=== PATIENT | male | born 1965 | race Caucasian/White ===

== ENCOUNTER 2022-01-27 08:01 | Day surgery (SDC) | payer MEDICAID ==
[~2022-01-27] VITALS: Ht 180.3 cm; Wt 79.3 kg
[2022-01-27] VITALS (14 sets, daily range): BP systolic 100–141; BP diastolic 51–98
[2022-01-27] MEDS ORDERED: METF-438 PO (08:29)
[2022-01-27] MEDS ORDERED: LISI10TA27 PO (08:29)
[2022-01-27] MEDS ORDERED: INSU100I31 SQ (08:29)
[2022-01-27] MEDS ORDERED: ATOR20TA66 PO (08:29)
[2022-01-27] MEDS ORDERED: normal saline 1,000 ML IV SCH (08:30)
[2022-01-27] MEDS ORDERED: nitroGLYCERIN 0.4mg SUBLingual tab SL PRN ×2 (08:30→11:40)
[2022-01-27] MEDS ORDERED: LORazepam 0.5 MG tablet PO PRN (08:30)
[2022-01-27] MEDS ORDERED: ALBUTEROL INH (08:30)
[2022-01-27] MEDS ORDERED: diphenhydrAMINE 25mg capsule PO PRN (08:30)
[2022-01-27] MEDS ORDERED: ASPI-1071 PO (08:30)
[2022-01-27] MEDS ORDERED: iohexol 350MG/ML 100ml bottle IV ONE (08:52)
[2022-01-27] MEDS ORDERED: fentaNYL/PF 50MCG/1 ML 2ML syringe ONE ×2 (08:52→09:53)
[2022-01-27] MEDS ORDERED: midazolam 1 mg/ML 2ml injection ONE ×2 (08:52→09:51)
--- NOTE | 2022-01-27 09:42 | NUR ---
Multiple IV attempts unsuccessful. Pt admits to being ex-IV drug abuser. All attempts able to acces vein with good blood return but unable to advance catheter. Rosemarie MÁRQUEZ (warehouse technician) brought ultrasound and was successfully able to insert 20 G PIV to Left upper arm. IV secured, able to flush with NS but unable to withdraw blood. PIV attached to IV line with pump, currently infusing with no resistance or evidence of infiltration. Lab was called to draw blood for labs.
--- NOTE | 2022-01-27 11:30 | NUR ---
Dr. Bernal CV surgeon at pt bedside discussing results of heart cath and the need for open heart bipass surgery. Pt uncomfortable at this time to discuss or make plans to proceed with having open heart surgery. Pt states he needs to hink about it. Dr. Bernal to return and discuss with pt again at 1300.
[2022-01-27] MEDS ORDERED: normal saline 1000ml 1,000 ML IV SCH (11:35)
[2022-01-27] MEDS ORDERED: ondansetron/PF 4mg/2ml inj IV PRN (11:35)
[2022-01-27] MEDS ORDERED: HYDROcodone/acetaminophen 10/325mg tab PO PRN (11:40)
[2022-01-27] MEDS ORDERED: HYDROcodone/acetaminophen 5mg/325mg tablet PO PRN (11:40)
[2022-01-27] MEDS ORDERED: OXAZEpam 15mg capsule PO PRN (11:40)
[2022-01-27 11:53] LABS: ISTAT HGB ART 13.6 g/dl (14.0-18.0); ISTAT Hct ART 40 %PCV (42-52); ISTAT O2 SATURATION ARTERIAL 97 % (95-98); ISTAT SOURCE BLNK
[2022-01-27 11:53] LABS: ISTAT Hct MIX 38 %PCV (42-52); ISTAT O2 SATURATION MIX VENOUS 67 % (60-80); ISTAT SOURCE BLNK
--- NOTE | 2022-01-27 13:30 | NUR ---
Dr. Bernal phoned to check on pt status. I discussed with Dr. Bernal the pt's wishes to continue to go home and think about it. Orders received from Dr. Bernal. I discussed with Dr. Bernal pt is comfortable with the idea of going home to think about open heart surgery and to see Dr. Bernal in clinic to further discuss his options and answer any questions he might have regarding surgery on Wednesday, February 02, 2022.
--- NOTE | 2022-01-27 14:00 | NUR ---
Pt eating sandwich and drinking juice without problems.
--- NOTE | 2022-01-27 16:30 | NUR ---
Written and Verbal DC instructions given to pt, stressed importance of seeking medical care if he should have return of symptoms of heart attack including but not limited to SOB, CP, feeling faint, stressed importance of following up with Dr. Bernal for consultation. Pt verbalizes understanding.
--- NOTE | 2022-01-27 16:45 | NUR ---
Pt up amb in hallway, gait steady. No C/O CP, SOB, or feeling faint/light headed. Right groin site remains stable, no bleeding, bruising or hematoma noted. Dressing CD&I. Pt returned to room, able to dress self.
--- NOTE | 2022-01-27 17:00 | NUR ---
Dc to home with friend transferred to private car via WC with all belongings.
== END 2022-01-27 17:00 | disposition home or self-care (01) ==
LOC: SSTAY O 08:01
PROVIDERS: ATTEND Internal Medicine Cardiovascular Disease
DX: R94.39 Abnormal result of other cardiovascular function study (principal); I25.10 Atherosclerotic heart disease of native coronary artery without angina pectoris; Z79.899 Other long term (current) drug therapy; I27.20 Pulmonary hypertension, unspecified; I10 Essential (primary) hypertension; I73.9 Peripheral vascular disease, unspecified; E78.5 Hyperlipidemia, unspecified; E11.51 Type 2 diabetes mellitus with diabetic peripheral angiopathy without gangrene; J44.9 Chronic obstructive pulmonary disease, unspecified; Z87.891 Personal history of nicotine dependence; Z98.890 Other specified postprocedural states
CPT/HCPCS: 36415; 82803; 83880; 84484; 85014; 93005; 93461; 93880; 99152; 99153; C1751; C1760; C1769; J1644; J2250; J3010; J7030; Q0163; Q9967; A4620; A6258

== ENCOUNTER 2022-02-04 12:30 | Outpatient (CLI) | payer MEDICAID ==
[~2022-02-04] VITALS: Ht 180.3 cm; Wt 77.1 kg
[~2022-02-04 12:30] MED LIST: ALBUTEROL INH; ASPI-1071 PO; ATOR20TA66 PO; INSU100I31 SQ; LISI10TA27 PO; METF-438 PO
[2022-02-04 14:13] LABS: BASOPHILS # (AUTO) 0.1 X10'3 (0-0.2); BASOPHILS % (AUTO) 1.1 % (0-1); EOSINOPHILS # (AUTO) 0.3 X10'3 (0-0.9); EOSINOPHILS % (AUTO) 2.6 % (0-6); LYMPHOCYTES # (AUTO) 2.2 X10'3 (1.1-4.8); LYMPHOCYTES % (AUTO) 18.8 % (21-51); MEAN CORPUSCULAR HEMOGLOBIN 29.4 PG (27.0-31.0); MEAN CORPUSCULAR HGB CONC 33.9 g/dL (33.0-36.5); MEAN CORPUSCULAR VOLUME 86.9 FL (78-98); MEAN PLATELET VOLUME 9.7 FL (7.4-10.4); MONOCYTES # (AUTO) 1.3 X10'3 (0-0.9); MONOCYTES % (AUTO) 10.9 % (2-12); NEUTROPHILS # (AUTO) 7.9 X10'3 (1.8-7.7); NEUTROPHILS % (AUTO) 66.6 % (42-75); PRE OP HEMATOCRIT 45.1 % (42.0-52.0); PRE OP HEMOGLOBIN 15.3 g/dL (14.0-17.9); PRE OP PLATELET COUNT 271 X10'3 (140-440); RED BLOOD COUNT 5.19 X10'6 (4.70-6.10); RED CELL DISTRIBUTION WIDTH 13.8 % (11.5-14.5)
[2022-02-04 14:16] LABS: CLARITY,URINE CLEAR (Clear); COLOR,URINE YELLOW (Yellow); GLUCOSE, URINE 500 mg/dl (Neg); KETONES,URINE NEGATIVE (Neg); LEUKOCYTE ESTERASE ,URINE NEGATIVE (Neg); NITRITES, URINE NEGATIVE (Neg); OCCULT BLOOD,URINE NEGATIVE (Neg); PH,URINE 5.5 (4.8-8.0); PROTEIN,URINE TRACE mg/dl (Neg); UROBILINOGEN,URINE 0.2 E.U/dL (0.2-1.0)
[2022-02-04 14:26] LABS: PRE OP PROTIME 10.2 SECONDS (9.0-12.0)
[2022-02-04 14:28] LABS: HEMOGLOBIN A1C 8.2 % (4.5-6.2); UA COLLECTION TYPE CLN CATCH MIDSTREAM
[2022-02-04 14:29] LABS: BACTERIA,URINE NONE SEEN /HPF (Neg); MUCUS STRANDS MODERATE /LPF (Neg); RBC,URINE NONE SEEN /HPF (0-2); SQUAMOUS EPITHELIAL CELL,UR FEW /LPF (FEW); WBC,URINE 0-4 /HPF (0-4)
[2022-02-04 14:30] LABS: ALBUMIN 3.7 G/DL (3.4-5.0); ALBUMIN/GLOBULIN RATIO 0.9 (1.1-1.5); ALKALINE PHOSPHATASE 90 IU/L (46-116); BLOOD UREA NITROGEN 15 MG/DL (7-18); BUN/CREATININE RATIO 9.6 (5.4-32.0); CALCIUM 9.1 MG/DL (8.5-10.1); CHLORIDE 100 MMOL/L (99-107); CREATININE 1.57 MG/DL (0.60-1.10); PRE OP ALT 31 U/L (30-65); PRE OP ANION GAP 9 (8-16); PRE OP AST 18 U/L (10-37); PRE OP BILIRUB, TOTAL 0.6 MG/DL (0.0-1.0); PRE OP GLUCOSE 151 MG/DL (70-104); PRE OP POTASSIUM 4.1 MMOL/L (3.4-5.1); PRE OP SODIUM 138 MMOL/L (135-145); TOTAL CARBON DIOXIDE 28.8 MMOL/L (24-32); TOTAL PROTEIN 7.6 G/DL (6.4-8.2); eGFR 46 ML/MIN
[2022-02-08] MEDS ORDERED: ringers solution, lacted 1,000 ML IV SCH (05:00)
[2022-02-08] MEDS ORDERED: gabapentin 300mg capsule PO ONE (05:30)
[2022-02-08] MEDS ORDERED: LORazepam 1 MG tablet PO ONE (05:30)
[2022-02-08] MEDS ORDERED: ceFAZolin inj. 2,000 MG in dextrose 5%-water 100 ML IV ONE (05:30)
[2022-02-08] MEDS ORDERED: mupirocin 2% nasal ointment 1gm UD NS ONE (05:30)
[2022-02-08] MEDS ORDERED: albuterol 2.5 MG/3 ML nebule NEB ONE (05:30)
[2022-02-08] MEDS ORDERED: famotidine 20mg tablet PO ONE (05:30)
[2022-02-08 06:11] LABS: ABG BASE EXCESS -1.1 mmol/L (-2.0-2.0); ABG HCO3 22.7 mmol/L (22.0-26.0); ABG OXYGEN SATURATION 96.4 % (94-97); ABG PCO2 (T) 35.7 mmHg (35.0-48.0); ABG PO2 (T) 85.3 mmHg (75.0-100.0); ALLEN'S TEST POSITIVE; FCOHb 0.3 % (0.0-3.9); FO2Hb 96.1 % (94-97); TOTAL HEMOGLOBIN 15.1 G/dl (14.0-18.0)
[2022-02-10] MEDS ORDERED: ringers solution, lacted 1,000 ML IV SCH (05:00)
[2022-02-10] MEDS ORDERED: ceFAZolin inj. 2,000 MG in dextrose 5%-water 100 ML IV ONE (05:30)
[2022-02-10] MEDS ORDERED: LORazepam 1 MG tablet PO ONE (05:30)
[2022-02-10] MEDS ORDERED: gabapentin 300mg capsule PO ONE (05:30)
[2022-02-10] MEDS ORDERED: phenylephrine inj 50 MG in normal saline 250ml IV solN IV SCH (05:30)
[2022-02-10] MEDS ORDERED: albuterol 2.5 MG/3 ML nebule NEB ONE (05:30)
[2022-02-10] MEDS ORDERED: Insulin Reg/NS 100units/100mL 100 ML IV SCH (05:30)
[2022-02-10] MEDS ORDERED: famotidine 20mg tablet PO ONE (05:30)
[2022-02-10] MEDS ORDERED: mupirocin 2% nasal ointment 1gm UD NS ONE (05:30)
[2022-02-10] MEDS ORDERED: nitroPRUSSIDE (NIPRIDE) (200MCG/ML) 100ML Drip IV SCH (05:30)
== END 2022-02-04 23:59 | disposition home or self-care (01) ==
LOC: PRE-OP 12:30 → LAB 12:30 → PRE-OP 23:59 → EDSTATUS 02-10 08:30
PROVIDERS: ATTEND Thoracic Surgery (Cardiothoracic Vascular Surgery)
DX: Z01.818 Encounter for other preprocedural examination (principal); R94.31 Abnormal electrocardiogram [ECG] [EKG]
CPT/HCPCS: 36415; 36600; 80053; 81001; 82803; 83036; 85018; 85025; 85610; 85730; 86885; 86900; 86901; 86920; 87081; 93005; 93970; A4615; J0690; J1815; J2370; J3490; J7050; J7060; J7120

== ENCOUNTER 2022-02-22 10:15 | Inpatient (IN) | payer MEDICAID ==
[~2022-02-22] VITALS: Ht 175.3 cm; Wt 92.3 kg
[2022-02-23 13:46] LABS: BASOPHILS # (AUTO) 0.1 X10'3 (0-0.2); BASOPHILS % (AUTO) 0.9 % (0-1); EOSINOPHILS # (AUTO) 0.1 X10'3 (0-0.9); EOSINOPHILS % (AUTO) 1.1 % (0-6); LYMPHOCYTES % (AUTO) 18.9 % (21-51); MEAN CORPUSCULAR HEMOGLOBIN 30.6 PG (27.0-31.0); MEAN CORPUSCULAR HGB CONC 34.5 g/dL (33.0-36.5); MEAN CORPUSCULAR VOLUME 88.8 FL (78-98); MEAN PLATELET VOLUME 10.8 FL (7.4-10.4); MONOCYTES # (AUTO) 0.8 X10'3 (0-0.9); NEUTROPHILS # (AUTO) 7.8 X10'3 (1.8-7.7); NEUTROPHILS % (AUTO) 72.1 % (42-75); PRE OP HEMATOCRIT 43.5 % (42.0-52.0); PRE OP PLATELET COUNT 229 X10'3 (140-440); RED CELL DISTRIBUTION WIDTH 13.8 % (11.5-14.5)
[2022-02-23 13:49] LABS: CLARITY,URINE CLEAR (Clear); COLOR,URINE YELLOW (Yellow); GLUCOSE, URINE >=1000 mg/dl (Neg); KETONES,URINE NEGATIVE (Neg); LEUKOCYTE ESTERASE ,URINE NEGATIVE (Neg); NITRITES, URINE NEGATIVE (Neg); OCCULT BLOOD,URINE NEGATIVE (Neg); PROTEIN,URINE NEGATIVE (Neg); UROBILINOGEN,URINE 0.2 E.U/dL (0.2-1.0)
[2022-02-23 13:54] LABS: UA COLLECTION TYPE CLN CATCH MIDSTREAM
[2022-02-23 13:56] LABS: PRE OP PROTIME 9.9 SECONDS (9.0-12.0)
[2022-02-23 14:04] LABS: ALBUMIN 3.8 G/DL (3.4-5.0); ALBUMIN/GLOBULIN RATIO 0.8 (1.1-1.5); ALKALINE PHOSPHATASE 98 IU/L (46-116); BLOOD UREA NITROGEN 18 MG/DL (7-18); BUN/CREATININE RATIO 12.1 (5.4-32.0); CALCIUM 9.2 MG/DL (8.5-10.1); CHLORIDE 100 MMOL/L (99-107); CREATININE 1.49 MG/DL (0.60-1.10); PRE OP ALT 25 U/L (30-65); PRE OP ANION GAP 5 (8-16); PRE OP AST 22 U/L (10-37); PRE OP BILIRUB, TOTAL 0.3 MG/DL (0.0-1.0); PRE OP SODIUM 135 MMOL/L (135-145); TOTAL CARBON DIOXIDE 30.3 MMOL/L (24-32); TOTAL PROTEIN 8.3 G/DL (6.4-8.2); eGFR 49 ML/MIN
[2022-02-23 14:12] LABS: PRE OP GLUCOSE 310 MG/DL (70-104)
[2022-02-23 14:20] LABS: LARGE PLATELETS FEW; PLATELET ESTIMATE NORMAL
[2022-02-23 14:22] LABS: BACTERIA,URINE NONE SEEN /HPF (Neg); RBC,URINE NONE SEEN /HPF (0-2); SQUAMOUS EPITHELIAL CELL,UR FEW /LPF (FEW); WBC,URINE NONE SEEN /HPF (0-4)
[2022-02-23 16:04] LABS: ABG BASE EXCESS 0.8 mmol/L (-2.0-2.0); ABG HCO3 24.8 mmol/L (22.0-26.0); ABG PCO2 (T) 38.1 mmHg (35.0-48.0); ALLEN'S TEST POSITIVE; FCOHb 1.3 % (0.0-3.9); FMetHb 0.1 % (0.0-1.5); FO2Hb 94.7 % (94-97); TOTAL HEMOGLOBIN 14.4 G/dl (14.0-18.0)
[2022-02-24] VITALS (16 sets, daily range): BP systolic 97–137; BP diastolic 48–70
[2022-02-24] MEDS ORDERED: ringers solution, lacted 1,000 ML IV SCH (05:00)
[2022-02-24] MEDS ORDERED: famotidine 20mg tablet PO ONE (05:30)
[2022-02-24] MEDS ORDERED: Insulin Reg/NS 100units/100mL 100 ML IV SCH ×2 (05:30→15:15)
[2022-02-24] MEDS ORDERED: gabapentin 300mg capsule PO ONE ×2 (05:30→09:31)
[2022-02-24] MEDS ORDERED: LORazepam 1 MG tablet PO ONE (05:30)
[2022-02-24] MEDS ORDERED: albuterol 2.5 MG/3 ML nebule NEB ONE (05:30)
[2022-02-24] MEDS ORDERED: ceFAZolin inj. 2,000 MG in dextrose 5%-water 100 ML IV ONE (05:30)
[2022-02-24] MEDS ORDERED: epiNEPHrine 1 mg/ml inj ONE (05:42)
[2022-02-24] MEDS ORDERED: ceFAZolin 1000mg inj ONE (05:42)
[2022-02-24] MEDS: mupirocin 2% nasal ointment 1gm UD NS SCH ×3 (08:00→19:49)
[2022-02-24] MEDS ORDERED: heparin 10,000 units/1 ML INJ ONE ×2 (09:00→12:00)
[2022-02-24] MEDS ORDERED: papaverine 30 mg/ml 2ml inj. ONE (09:00)
[2022-02-24] MEDS ORDERED: LORazepam 2 mg/ml vial IV ONE (09:40)
[2022-02-24] MEDS ORDERED: midazolam 1 mg/ML 2ml injection ONE (11:22)
[2022-02-24] MEDS ORDERED: SUFENTANIL CITRATE 50 MCG/ML 2ml ampule IV ONE (11:22)
[2022-02-24] MEDS ORDERED: isoflurane 100ml inhalation liquid IH ONE (11:56)
[2022-02-24] MEDS ORDERED: nitroGLYCERIN in D5W 50mg/250ml (Tridil) infusion IV ONE (11:56)
[2022-02-24] MEDS ORDERED: protamine sulf. 10mg/ml inj. IV ONE (11:56)
[2022-02-24] MEDS ORDERED: albumin (human) 25% 100 ML IV solution IV ONE (12:00)
[2022-02-24] MEDS ORDERED: aminocaproic acid 250 MG/1 ML inj. ONE (12:00)
[2022-02-24] MEDS ORDERED: sodium bicarbonate (8.4%) 1 mEq/ml syringe ONE (12:00)
[2022-02-24] MEDS ORDERED: phenylephrine 10mg/ml inj. ONE (12:00)
[2022-02-24] MEDS ORDERED: calcium chloride 100 MG/1 ML inj IV ONE (12:00)
[2022-02-24] MEDS ORDERED: mannitol 12.5gm/50mL VIAL IV ONE (12:00)
[2022-02-24] MEDS ORDERED: methylPREDNISolone sod succ 1000mg vial ONE (12:00)
[2022-02-24] MEDS ORDERED: ipratropium/albuterol 3ml nebule IH PRN (12:00)
[2022-02-24 12:30] LABS: ABG BASE EXCESS -0.9 mmol/L (-2.0-2.0); ABG HCO3 23.5 mmol/L (22.0-26.0); ABG OXYGEN SATURATION 99.6 % (94-97); ABG PCO2 38.2 mmHg (35.0-48.0); ABG PO2 296.1 mmHg (75.0-100.0); CL (ABG) 103 mmol/L (98-110); FCOHb 1.5 % (0.0-3.9); FMetHb 0.3 % (0.0-1.5); FO2Hb 97.8 % (94-97); GLUCOSE (ABG) 143 mg/dl (70-105); IONIZED CA (ABG) 1.15 mmol/L (1.10-1.43); K (ABG) 4.7 mmol/L (3.5-5.0); TOTAL HEMOGLOBIN 13.7 G/dl (14.0-18.0)
[2022-02-24] MEDS ORDERED: heparin 10,000 units/1 ML INJ IR ONE (13:24)
[2022-02-24] MEDS ORDERED: papaverine 30 mg/ml 2ml inj. IA ONE (13:25)
[2022-02-24 13:36] LABS: ABG BASE EXCESS VENOUS 0.3 mmol/L (-2.0 - 2.0); ABG HCO3 VENOUS 25.4 mmol/L (21.0-28.0); ABG PCO2 VENOUS 42.9 mmHg (41.0-54.0); ABG PO2 VENOUS 44.1 mmHg (25.0-35.0); CL (ABG) 99 mmol/L (98-110); FCOHb VENOUS 1.6 %; FHHb VENOUS 18.1 %; FMetHb VENOUS 0.3 % (0.0 - 0.5); GLUCOSE (ABG) 119 mg/dl (70-105); IONIZED CA (ABG) 0.94 mmol/L (1.10-1.43); K (ABG) 4.2 mmol/L (3.5-5.0); TOTAL HEMOGLOBIN 9.1 G/dl (14.0-18.0)
[2022-02-24 13:39] LABS: ABG BASE EXCESS 0.7 mmol/L (-2.0-2.0); ABG HCO3 25.3 mmol/L (22.0-26.0); ABG OXYGEN SATURATION 99.2 % (94-97); ABG PCO2 40.3 mmHg (35.0-48.0); CL (ABG) 100 mmol/L (98-110); FCOHb 0.8 % (0.0-3.9); FMetHb 0.3 % (0.0-1.5); FO2Hb 98.1 % (94-97); GLUCOSE (ABG) 124 mg/dl (70-105); IONIZED CA (ABG) 0.98 mmol/L (1.10-1.43); K (ABG) 4.2 mmol/L (3.5-5.0); TOTAL HEMOGLOBIN 9.4 G/dl (14.0-18.0)
[2022-02-24 13:57] LABS: ABG BASE EXCESS 0.8 mmol/L (-2.0-2.0); ABG HCO3 25.9 mmol/L (22.0-26.0); ABG OXYGEN SATURATION 99.3 % (94-97); CL (ABG) 101 mmol/L (98-110); FCOHb 0.9 % (0.0-3.9); FMetHb 0.3 % (0.0-1.5); FO2Hb 98.1 % (94-97); GLUCOSE (ABG) 131 mg/dl (70-105); IONIZED CA (ABG) 0.96 mmol/L (1.10-1.43); TOTAL HEMOGLOBIN 9.3 G/dl (14.0-18.0)
[2022-02-24] MEDS ORDERED: acetaminophen 1,000mg/100ml IV 100 ML IV ONE (14:08)
[2022-02-24] MEDS ORDERED: etomidate 2mg/ml inj. ONE (14:08)
[2022-02-24] MEDS ORDERED: rocuronium 10mg/ml inj IV ONE (14:08)
[2022-02-24] MEDS ORDERED: LIDOcaine 2% (20mg/ml) 5ml vial ONE (14:08)
[2022-02-24] MEDS ORDERED: vancomycin 1,000mg inj ONE (14:16)
[2022-02-24 14:18] LABS: ABG BASE EXCESS 1.4 mmol/L (-2.0-2.0); ABG HCO3 26.5 mmol/L (22.0-26.0); ABG OXYGEN SATURATION 99.2 % (94-97); ABG PO2 269.3 mmHg (75.0-100.0); CL (ABG) 101 mmol/L (98-110); FCOHb 1.2 % (0.0-3.9); FMetHb 0.3 % (0.0-1.5); FO2Hb 97.7 % (94-97); GLUCOSE (ABG) 136 mg/dl (70-105); IONIZED CA (ABG) 1.47 mmol/L (1.10-1.43); TOTAL HEMOGLOBIN 9.5 G/dl (14.0-18.0)
[2022-02-24 14:56] LABS: ABG BASE EXCESS VENOUS 1.3 mmol/L (-2.0 - 2.0); ABG HCO3 VENOUS 27.2 mmol/L (21.0-28.0); ABG PCO2 VENOUS 49.3 mmHg (41.0-54.0); ABG PO2 VENOUS 43.3 mmHg (25.0-35.0); CL (ABG) 101 mmol/L (98-110); FCOHb VENOUS 1.6 %; FHHb VENOUS 22.4 %; FMetHb VENOUS 0.3 % (0.0 - 0.5); FO2Hb VENOUS 75.7 %; GLUCOSE (ABG) 146 mg/dl (70-105); IONIZED CA (ABG) 1.16 mmol/L (1.10-1.43); K (ABG) 5.2 mmol/L (3.5-5.0); TOTAL HEMOGLOBIN 10.6 G/dl (14.0-18.0)
[2022-02-24] MEDS ORDERED: dextrose 50%-water 50ml dispensing syringe IV PRN (15:15)
[2022-02-24] MEDS ORDERED: ondansetron/PF 4mg/2ml inj IV PRN (15:15)
[2022-02-24] MEDS ORDERED: sodium chloride 0.45% 1,000 ML IV SCH (15:15)
[2022-02-24] MEDS ORDERED: sodium phosphate inj. 30 MMOL in dextrose 5%-water 250 ML IV PRN (15:15)
[2022-02-24] MEDS ORDERED: nitroGLYCERIN-Tridil 50MG/D5W 250 ML IV PRN (15:15)
[2022-02-24] MEDS ORDERED: Neutra Phos packet PO PRN (15:15)
[2022-02-24] MEDS ORDERED: insulin glargine (Lantus) pen - multi-dose SQ PRN (15:15)
[2022-02-24] MEDS ORDERED: acetaminophen 325mg tablet PO PRN ×2 (15:15)
[2022-02-24] MEDS ORDERED: normal saline 250ml IV soln 250 ML IV PRN (15:15)
[2022-02-24] MEDS ORDERED: magnesium citrate 296ml oral solution PO PRN (15:15)
[2022-02-24] MEDS ORDERED: magnesium 4gm in 100ml NS 100 ML IV PRN (15:15)
[2022-02-24] MEDS ORDERED: metoclopramide 5 mg/ml inj IV PRN (15:15)
[2022-02-24] MEDS ORDERED: HYDROcodone/acetaminophen 10/325mg tab PO PRN (15:15)
[2022-02-24] MEDS ORDERED: magnesium hydroxide 30ml (MOM) UD suspension PO PRN (15:15)
[2022-02-24] MEDS ORDERED: potassium CL 10mEq/100ml bag 100 ML IV PRN (15:15)
[2022-02-24] MEDS ORDERED: potassium Cl 20 mEq SR tablet PO PRN (15:15)
[2022-02-24] MEDS ORDERED: mineral oil 133ml enema RC PRN (15:15)
[2022-02-24] MEDS ORDERED: DOPamine 400mg/D5W 250ml 250 ML IV PRN (15:15)
[2022-02-24] MEDS ORDERED: magnesium 2GM in 50ml NS 50 ML IV PRN (15:15)
[2022-02-24] MEDS ORDERED: bisacodyl 10mg suppository rectal RC PRN (15:15)
[2022-02-24] MEDS ORDERED: niCARDipine-NS 40mg/200ml IVPB 200 ML IV PRN (15:15)
[2022-02-24] MEDS ORDERED: sodium phosphate inj. 15 MMOL in dextrose 5%-water 250 ML IV PRN (15:15)
[2022-02-24] MEDS ORDERED: albumin (Human) 5% 250ml 250 ML IV ONE (15:26)
--- NOTE | 2022-02-24 15:30 | NUR ---
Received to room , accompanied by MDs and surgical crew. Placed on ventilator, to athletic monitor, arterial line and PA line pressure zeroed & monitored. Chest tubes to suction at 20 cm. Kelley cath to gravity drainage. Dressings are dry and intact. See assessment record. All vasoactive drugs are infusing via central line.
[2022-02-24 15:36] LABS: ABG BASE EXCESS -1.1 mmol/L (-2.0-2.0); ABG HCO3 22.8 mmol/L (22.0-26.0); ABG PCO2 (T) 34.6 mmHg (35.0-48.0); ABG PO2 (T) 310.8 mmHg (75.0-100.0); PATIENT TEMPERATURE 36.5; PEEP 5 cm H2O; RESPIRATORY RATE 12 b/min; TIDAL VOLUME 600 mL; TOTAL HEMOGLOBIN 12.3 G/dl (14.0-18.0)
[2022-02-24 15:37] LABS: ABG OXYGEN SATURATION 99.1 % (94-97); FCOHb 0.2 % (0.0-3.9); FMetHb 0.5 % (0.0-1.5); FO2Hb 98.4 % (94-97)
[2022-02-24 15:49] LABS: BASOPHILS # (AUTO) 0.1 X10'3 (0-0.2); BASOPHILS % (AUTO) 0.7 % (0-1); EOSINOPHILS # (AUTO) 0.1 X10'3 (0-0.9); EOSINOPHILS % (AUTO) 1.1 % (0-6); HEMATOCRIT 31.3 % (42.0-52.0); LYMPHOCYTES # (AUTO) 0.9 X10'3 (1.1-4.8); LYMPHOCYTES % (AUTO) 7.3 % (21-51); MEAN CORPUSCULAR HEMOGLOBIN 30.7 PG (27.0-31.0); MEAN CORPUSCULAR HGB CONC 35.2 g/dL (33.0-36.5); MEAN CORPUSCULAR VOLUME 87.2 FL (78-98); MEAN PLATELET VOLUME 10.3 FL (7.4-10.4); MONOCYTES # (AUTO) 0.4 X10'3 (0-0.9); MONOCYTES % (AUTO) 3.2 % (2-12); NEUTROPHILS # (AUTO) 11.4 X10'3 (1.8-7.7); NEUTROPHILS % (AUTO) 87.7 % (42-75); PLATELET COUNT 174 X10'3 (140-440); RED BLOOD COUNT 3.59 X10'6 (4.70-6.10); RED CELL DISTRIBUTION WIDTH 13.6 % (11.5-14.5)
[2022-02-24 15:55] LABS: ALANINE AMINOTRANSFERASE 21 U/L (12-78); ALBUMIN 2.8 G/DL (3.4-5.0); ALBUMIN/GLOBULIN RATIO 1.1 (1.1-1.5); ALKALINE PHOSPHATASE 52 IU/L (46-116); ANION GAP 6 (8-16); APTT 27 SECONDS (22-32); ASPARTATE AMINO TRANSFERASE 33 U/L (10-37); BILIRUBIN,TOTAL 0.8 MG/DL (0.1-1.0); BLOOD UREA NITROGEN 18 MG/DL (7-18); BUN/CREATININE RATIO 14.1 (5.4-32.0); CALCIUM 8.2 MG/DL (8.5-10.1); CHLORIDE 103 MMOL/L (99-107); CREATININE 1.28 MG/DL (0.60-1.10); GLUCOSE 164 MG/DL (70-104); MAGNESIUM 1.6 MG/DL (1.5-2.4); PHOSPHORUS 3.7 MG/DL (2.3-4.5); POTASSIUM 5.5 MMOL/L (3.5-5.1); SODIUM 136 MMOL/L (135-145); TOTAL CARBON DIOXIDE 26.6 MMOL/L (24-32); TOTAL PROTEIN 5.4 G/DL (6.4-8.2); eGFR 59 ML/MIN
[2022-02-24] MEDS: morphine 4 MG/ML inj SYRINge IV PRN ×2 (16:22→22:56)
[2022-02-24] MEDS: ceFAZolin/D5W- 1GM premix 50 ML IV SCH (17:13)
[2022-02-24] MEDS: albumin (Human) 5% 250ml 250 ML IV PRN ×3 (18:29→23:42)
[2022-02-24] MEDS: vancomycin/NS 1 GM ADD-VANTAGE 250 ML IV SCH (19:49)
[2022-02-24] MEDS: sennosides/docusate sodium tablet PO SCH (19:49)
[2022-02-24] MEDS ORDERED: mupirocin 2% ointment 22GM NS SCH (20:00)
[2022-02-24] MEDS: atorvastatin 10mg tablet PO SCH (20:20)
[2022-02-24] MEDS: gabapentin 300mg capsule PO SCH (20:20)
[2022-02-24] MEDS: morphine 2 MG/ML inj. syringe IV PRN (21:26)
[2022-02-24 22:04] LABS: BASOPHILS % (AUTO) 0.1 % (0-1); EOSINOPHILS % (AUTO) 0 % (0-6); HEMATOCRIT 26.8 % (42.0-52.0); HEMOGLOBIN 9.3 g/dl (14.0-17.9); LYMPHOCYTES # (AUTO) 0.5 X10'3 (1.1-4.8); LYMPHOCYTES % (AUTO) 3.5 % (21-51); MEAN CORPUSCULAR HEMOGLOBIN 30.4 PG (27.0-31.0); MEAN CORPUSCULAR HGB CONC 34.7 g/dL (33.0-36.5); MEAN CORPUSCULAR VOLUME 87.5 FL (78-98); MEAN PLATELET VOLUME 10.2 FL (7.4-10.4); MONOCYTES # (AUTO) 0.4 X10'3 (0-0.9); MONOCYTES % (AUTO) 2.7 % (2-12); NEUTROPHILS # (AUTO) 12.7 X10'3 (1.8-7.7); NEUTROPHILS % (AUTO) 93.7 % (42-75); PLATELET COUNT 143 X10'3 (140-440); RED BLOOD COUNT 3.06 X10'6 (4.70-6.10); RED CELL DISTRIBUTION WIDTH 13.7 % (11.5-14.5); WHITE BLOOD COUNT 13.5 X10'3 (4.5-11.0)
[2022-02-24 22:23] LABS: ANION GAP 9 (8-16); BLOOD UREA NITROGEN 19 MG/DL (7-18); BUN/CREATININE RATIO 15.1 (5.4-32.0); CALCIUM 7.6 MG/DL (8.5-10.1); CHLORIDE 109 MMOL/L (99-107); CREATININE 1.26 MG/DL (0.60-1.10); GLUCOSE 110 MG/DL (70-104); PHOSPHORUS 1.9 MG/DL (2.3-4.5); POTASSIUM 3.8 MMOL/L (3.5-5.1); SODIUM 139 MMOL/L (135-145); eGFR 60 ML/MIN
[2022-02-24] MEDS: potassium Cl 20mEq/100mL bag 100 ML IV PRN ×2 (23:04→23:49)
[2022-02-25] VITALS (23 sets, daily range): BP systolic 92–124; BP diastolic 46–72
[2022-02-25] MEDS: ceFAZolin/D5W- 1GM premix 50 ML IV SCH ×3 (00:05→18:03)
[2022-02-25] MEDS: morphine 2 MG/ML inj. syringe IV PRN ×2 (00:21→06:26)
--- NOTE | 2022-02-25 00:45 | NUR ---
Received report from day shift RN, Maria Del Rosario and assumed care of patient.
--- NOTE | 2022-02-25 01:11 | NUR ---
Problems reprioritized. Patient report given, questions answered & plan of care reviewed with Mac RN.
[2022-02-25] MEDS: morphine 4 MG/ML inj SYRINge IV PRN (02:46)
[2022-02-25 03:10] LABS: ABG BASE EXCESS -3.2 mmol/L (-2.0-2.0); ABG HCO3 19.4 mmol/L (22.0-26.0); ABG OXYGEN SATURATION 97.1 % (94-97); ABG PCO2 (T) 27.1 mmHg (35.0-48.0); ABG PO2 (T) 102.6 mmHg (75.0-100.0); FCOHb 0.3 % (0.0-3.9); FMetHb 0.2 % (0.0-1.5); FO2Hb 96.6 % (94-97); PATIENT TEMPERATURE 37.3; PEEP 5 cm H2O; TOTAL HEMOGLOBIN 9.9 G/dl (14.0-18.0)
--- NOTE | 2022-02-25 03:28 | NUR ---
RN Note -Pt extubated, tolerated well. Alert and cooperative.
[2022-02-25] MEDS: potassium Cl 20mEq/100mL bag 100 ML IV PRN ×2 (03:55→05:15)
[2022-02-25 04:33] LABS: BASOPHILS % (AUTO) 0.3 % (0-1); EOSINOPHILS % (AUTO) 0.1 % (0-6); HEMOGLOBIN 9.2 g/dl (14.0-17.9); LYMPHOCYTES # (AUTO) 0.6 X10'3 (1.1-4.8); LYMPHOCYTES % (AUTO) 4.5 % (21-51); MEAN CORPUSCULAR HGB CONC 34.2 g/dL (33.0-36.5); MEAN CORPUSCULAR VOLUME 87.8 FL (78-98); MEAN PLATELET VOLUME 10.8 FL (7.4-10.4); MONOCYTES # (AUTO) 0.3 X10'3 (0-0.9); MONOCYTES % (AUTO) 2.4 % (2-12); NEUTROPHILS # (AUTO) 12.9 X10'3 (1.8-7.7); NEUTROPHILS % (AUTO) 92.7 % (42-75); PLATELET COUNT 148 X10'3 (140-440); RED BLOOD COUNT 3.08 X10'6 (4.70-6.10); WHITE BLOOD COUNT 13.9 X10'3 (4.5-11.0)
[2022-02-25 04:40] LABS: APTT 25 SECONDS (22-32)
[2022-02-25 04:42] LABS: ALANINE AMINOTRANSFERASE 21 U/L (12-78); ALBUMIN 3.1 G/DL (3.4-5.0); ALBUMIN/GLOBULIN RATIO 1.3 (1.1-1.5); ALKALINE PHOSPHATASE 39 IU/L (46-116); ANION GAP 9 (8-16); ASPARTATE AMINO TRANSFERASE 31 U/L (10-37); BILIRUBIN,TOTAL 0.8 MG/DL (0.1-1.0); BLOOD UREA NITROGEN 21 MG/DL (7-18); BUN/CREATININE RATIO 16.7 (5.4-32.0); CALCIUM 7.6 MG/DL (8.5-10.1); CHLORIDE 110 MMOL/L (99-107); CREATININE 1.26 MG/DL (0.60-1.10); GLUCOSE 139 MG/DL (70-104); MAGNESIUM 2.5 MG/DL (1.5-2.4); PHOSPHORUS 2.9 MG/DL (2.3-4.5); POTASSIUM 4.2 MMOL/L (3.5-5.1); SODIUM 139 MMOL/L (135-145); TOTAL PROTEIN 5.4 G/DL (6.4-8.2); eGFR 60 ML/MIN
--- NOTE | 2022-02-25 06:30 | NUR ---
Patient in room CICU 2014. I have received report from YULISA Alfaro and had the opportunity to ask questions and assume patient care.
--- NOTE | 2022-02-25 07:30 | NUR ---
Arterial line and Swanz catheter discontinued per Dr Yee's order.
[2022-02-25] MEDS: HYDROcodone/acetaminophen 10/325mg tab PO PRN ×3 (08:30→21:17)
[2022-02-25] MEDS: metoprolol tartrate 12.5mg (1/2 tablet) PO SCH ×2 (08:30→20:04)
[2022-02-25] MEDS: mupirocin 2% nasal ointment 1gm UD NS SCH ×2 (08:31→20:04)
[2022-02-25] MEDS: aspirin 81mg tab.chew PO SCH (08:31)
[2022-02-25] MEDS: gabapentin 300mg capsule PO SCH ×3 (08:31→20:03)
[2022-02-25] MEDS: sennosides/docusate sodium tablet PO SCH ×2 (08:31→20:03)
[2022-02-25] MEDS: vancomycin/NS 1 GM ADD-VANTAGE 250 ML IV SCH ×2 (09:16→20:04)
[2022-02-25] MEDS ORDERED: glucagon, human recombinant 1mg kit SUBCUT PRN (09:20)
[2022-02-25] MEDS ORDERED: MESSAGE TO PHARMACY PO ONE (09:20)
[2022-02-25] MEDS ORDERED: DEXTROSE 15 GM of carb/4 tabs (each vial/BOTTLE has 4 tablets) PO PRN ×2 (09:20)
[2022-02-25] MEDS ORDERED: dextrose 50%-water 50ml dispensing syringe IV PRN ×2 (09:20)
--- NOTE | 2022-02-25 12:25 | NUR ---
CABG Consult: Pt s/p CABGx3 this admit; would benefit from written/verbal high protein/HH diet eds once appropriate post-op prior to discharge. Addendum: 02/25/22 at [address] Amended: Links added.
--- NOTE | 2022-02-25 17:00 | NUR ---
Right IJ discontinued.
[2022-02-25] MEDS: insulin Lispro (HumaLOG) vial - multi-dose SQ SCH (18:12)
--- NOTE | 2022-02-25 18:40 | NUR ---
Problems reprioritized. Patient report given, questions answered & plan of care reviewed with YULISA Gilliam.
[2022-02-25] MEDS: atorvastatin 10mg tablet PO SCH (20:03)
--- NOTE | 2022-02-25 20:20 | NUR ---
[id number] in room 2015 A. I have received report from Amilcar MÁRQUEZ and had the opportunity to ask questions and assume patient care. Patient awake and alert, lungs sounds clear, Sats 95% on room air. Incision sites clean dry, midline incision open to air. Chest tubes to 20cm suction. 2020: Report called to Niya MÁRQUEZ receiving nurse. Transferred via wheelchair to room 3011A on Tele#2. Belongings . Special Issues communicated to receiving nurse.
[2022-02-25] MEDS: insulin glargine (Lantus) pen - multi-dose SQ SCH (21:00)
[2022-02-26] MEDS: ceFAZolin/D5W- 1GM premix 50 ML IV SCH (00:59)
[2022-02-26 02:00] VITALS: BP 97/63
[2022-02-26] MEDS: HYDROcodone/acetaminophen 10/325mg tab PO PRN (05:49)
[2022-02-26 06:00] VITALS: BP 137/74
[2022-02-26 06:40] LABS: ACTIVATED CLOTTING TIME 136 SEC (101-148)
[2022-02-26 06:42] LABS: ACT @ 1.70 U 283 SEC (193-297); ACT @ 2.84 U 398 SEC (260-420); BASELINE ACT 148 SEC (101-148); PATIENT WEIGHT 77.0k KG
[2022-02-26 07:44] LABS: BASOPHILS % (AUTO) 0.2 % (0-1); EOSINOPHILS % (AUTO) 0 % (0-6); HEMATOCRIT 35.9 % (42.0-52.0); HEMOGLOBIN 11.9 g/dl (14.0-17.9); LYMPHOCYTES # (AUTO) 2.4 X10'3 (1.1-4.8); LYMPHOCYTES % (AUTO) 13.1 % (21-51); MEAN CORPUSCULAR HEMOGLOBIN 30.4 PG (27.0-31.0); MEAN CORPUSCULAR HGB CONC 33.2 g/dL (33.0-36.5); MEAN CORPUSCULAR VOLUME 91.4 FL (78-98); MEAN PLATELET VOLUME 10.9 FL (7.4-10.4); MONOCYTES # (AUTO) 1.8 X10'3 (0-0.9); MONOCYTES % (AUTO) 9.8 % (2-12); NEUTROPHILS # (AUTO) 14.1 X10'3 (1.8-7.7); NEUTROPHILS % (AUTO) 76.9 % (42-75); PLATELET COUNT 102 X10'3 (140-440); RED BLOOD COUNT 3.93 X10'6 (4.70-6.10); RED CELL DISTRIBUTION WIDTH 14.3 % (11.5-14.5); WHITE BLOOD COUNT 18.3 X10'3 (4.5-11.0)
[2022-02-26] MEDS: mupirocin 2% nasal ointment 1gm UD NS SCH ×2 (08:00→20:00)
[2022-02-26 08:24] LABS: ALBUMIN 3.6 G/DL (3.4-5.0); ANION GAP 8 (8-16); BLOOD UREA NITROGEN 35 MG/DL (7-18); BUN/CREATININE RATIO 25.4 (5.4-32.0); CALCIUM 8.4 MG/DL (8.5-10.1); CHLORIDE 104 MMOL/L (99-107); CREATININE 1.38 MG/DL (0.60-1.10); GLUCOSE 184 MG/DL (70-104); MAGNESIUM 2.5 MG/DL (1.5-2.4); PHOSPHORUS 4.3 MG/DL (2.3-4.5); SODIUM 134 MMOL/L (135-145); eGFR 54 ML/MIN
[2022-02-26 08:29] LABS: POTASSIUM 6.2 MMOL/L (3.5-5.1)
[2022-02-26] MEDS ORDERED: furosemide 40mg/4ml inj IV ONE (09:00)
[2022-02-26] MEDS: pantoprazole 40mg Tablet.DR PO SCH (09:10)
[2022-02-26] MEDS: aspirin 81mg tab.chew PO SCH (09:10)
[2022-02-26] MEDS: metoprolol tartrate 12.5mg (1/2 tablet) PO SCH ×2 (09:11→20:00)
[2022-02-26] MEDS: sennosides/docusate sodium tablet PO SCH ×2 (09:11→20:00)
[2022-02-26] MEDS: gabapentin 300mg capsule PO SCH ×2 (09:12→12:43)
[2022-02-26] MEDS: insulin Lispro (HumaLOG) vial - multi-dose SQ SCH ×2 (10:19→21:28)
[2022-02-26 11:00] VITALS: BP 97/73
--- NOTE | 2022-02-26 11:12 | NUR ---
F/u 02/26: Pt hx DM A1C 8.2% 02/04/22 post-op day two s/p CABGx3 per EMR. Pt seen by RD for written/verbal high protein/HH/DM diet eds w/ RD contact information provided. Pt is agreeable to ethel PINON; MD notified. RD encouraged pt to contact dietitian's office if further questions/concerns. Addendum: 02/26/22 at [address] Amended: Links added.
--- NOTE | 2022-02-26 12:15 | NUR ---
Dr Yee d/c'd CT x 2 and pacer wires - pt tolerated well. Dr wants patient to shower today. Pt will shower after lunch
[2022-02-26] MEDS: JUVEN Smoothie Arginine/Glut./Ca2+Bmb (Juven 19.3pkt) 240ml cup PO SCH ×3 (12:30→17:30)
--- NOTE | 2022-02-26 14:00 | NUR ---
Insulin was not administered d/t timing. Short staffed on floor.
[2022-02-26 15:00] VITALS: BP 110/63
[2022-02-26 18:00] VITALS: BP 119/75
--- NOTE | 2022-02-26 18:22 | NUR ---
Patient in room PCU 3011. I have received report from caridad driver and had the opportunity to ask questions and assume patient care.
--- NOTE | 2022-02-26 18:30 | NUR ---
Problems reprioritized. Patient report given, questions answered & plan of care reviewed with IDALIA Raymond.
[2022-02-26] MEDS: insulin glargine (Lantus) pen - multi-dose SQ SCH (21:27)
[2022-02-26] MEDS: atorvastatin 10mg tablet PO SCH (21:33)
[2022-02-26 22:00] VITALS: BP 95/58
[2022-02-27 02:00] VITALS: BP 98/72
--- NOTE | 2022-02-27 05:58 | NUR ---
reviewed COMPUTER TAPE LIBRARIAN assessment and in agreement,
[2022-02-27 06:00] VITALS: BP 108/62
--- NOTE | 2022-02-27 06:23 | NUR ---
Problems reprioritized. Patient report given, questions answered & plan of care reviewed with matthew rn.
--- NOTE | 2022-02-27 06:30 | NUR ---
Patient in room PCU 3011. I have received report from YULISA Raymond and had the opportunity to ask questions and assume patient care.
[2022-02-27 07:00] LABS: ALBUMIN 3.3 G/DL (3.4-5.0); ANION GAP 8 (8-16); BLOOD UREA NITROGEN 34 MG/DL (7-18); BUN/CREATININE RATIO 27.9 (5.4-32.0); CALCIUM 8.4 MG/DL (8.5-10.1); CHLORIDE 104 MMOL/L (99-107); CREATININE 1.22 MG/DL (0.60-1.10); GLUCOSE 158 MG/DL (70-104); PHOSPHORUS 3.8 MG/DL (2.3-4.5); POTASSIUM 5.1 MMOL/L (3.5-5.1); SODIUM 137 MMOL/L (135-145); TOTAL CARBON DIOXIDE 24.7 MMOL/L (24-32); eGFR 62 ML/MIN
[2022-02-27 07:49] LABS: BASOPHILS # (AUTO) 0.1 X10'3 (0-0.2); BASOPHILS % (AUTO) 0.4 % (0-1); EOSINOPHILS % (AUTO) 0.3 % (0-6); HEMATOCRIT 33.8 % (42.0-52.0); HEMOGLOBIN 11.4 g/dl (14.0-17.9); LYMPHOCYTES # (AUTO) 2.3 X10'3 (1.1-4.8); LYMPHOCYTES % (AUTO) 11.5 % (21-51); MEAN CORPUSCULAR HEMOGLOBIN 30.3 PG (27.0-31.0); MEAN CORPUSCULAR HGB CONC 33.8 g/dL (33.0-36.5); MEAN CORPUSCULAR VOLUME 89.5 FL (78-98); MEAN PLATELET VOLUME 11.4 FL (7.4-10.4); MONOCYTES # (AUTO) 1.8 X10'3 (0-0.9); MONOCYTES % (AUTO) 9.3 % (2-12); NEUTROPHILS # (AUTO) 15.4 X10'3 (1.8-7.7); NEUTROPHILS % (AUTO) 78.5 % (42-75); PLATELET COUNT 180 X10'3 (140-440); RED BLOOD COUNT 3.78 X10'6 (4.70-6.10); RED CELL DISTRIBUTION WIDTH 13.9 % (11.5-14.5); WHITE BLOOD COUNT 19.6 X10'3 (4.5-11.0)
[2022-02-27 08:46] LABS: LARGE PLATELETS FEW; PLATELET ESTIMATE NORMAL
[2022-02-27 10:00] VITALS: BP 118/56
[2022-02-27] MEDS: sennosides/docusate sodium tablet PO SCH (10:23)
[2022-02-27] MEDS: pantoprazole 40mg Tablet.DR PO SCH (10:23)
[2022-02-27] MEDS: metoprolol tartrate 12.5mg (1/2 tablet) PO SCH (10:23)
[2022-02-27] MEDS: aspirin 81mg tab.chew PO SCH (10:23)
[2022-02-27] MEDS: mupirocin 2% nasal ointment 1gm UD NS SCH (10:23)
[2022-02-27] MEDS ORDERED: FURO-150 PO ×2 (12:00→12:37)
[2022-02-27] MEDS ORDERED: HYDR-3965 PO ×2 (12:00→12:37)
[2022-02-27] MEDS ORDERED: LOP12.5T PO ×2 (12:00→12:37)
[2022-02-27] MEDS ORDERED: PANT40TA54 PO (12:00)
--- NOTE | 2022-02-27 12:00 | NUR ---
Pt refused BG check
[2022-02-27] MEDS: JUVEN Smoothie Arginine/Glut./Ca2+Bmb (Juven 19.3pkt) 240ml cup PO SCH (12:30)
[2022-02-27] MEDS ORDERED: PANT-47 PO (12:37)
--- NOTE | 2022-02-27 13:05 | NUR ---
DC inst provided to pt. IV DC'd, tip intact. All belongings sent w/pt. Pt ambulated to vehicle.
== END 2022-02-27 13:46 | disposition home or self-care (01) | DRG 166 ==
LOC: PAS IN 02-24 08:56 → CICU 2S 02-24 15:48 → PCU 3S 02-25 20:02
PROVIDERS: ADMIT Thoracic Surgery (Cardiothoracic Vascular Surgery); ATTEND Thoracic Surgery (Cardiothoracic Vascular Surgery)
PROC: 02100Z8 Bypass Coronary Artery, One Artery from Right Internal Mammary, Open Approach (ICD-10-PCS; 2022-02-24)
PROC: 021009W Bypass Coronary Artery, One Artery from Aorta with Autologous Venous Tissue, Open Approach (ICD-10-PCS; 2022-02-24)
PROC: 06BQ4ZZ Excision of Left Saphenous Vein, Percutaneous Endoscopic Approach (ICD-10-PCS; 2022-02-24)
PROC: 5A1221Z Performance of Cardiac Output, Continuous (ICD-10-PCS; 2022-02-24)
PROC: B24BZZ4 Ultrasonography of Heart with Aorta, Transesophageal (ICD-10-PCS; 2022-02-24)
PROC: 02100Z9 Bypass Coronary Artery, One Artery from Left Internal Mammary, Open Approach (ICD-10-PCS; principal; 2022-02-24 11:56)
DX: I25.10 Atherosclerotic heart disease of native coronary artery without angina pectoris (principal); I27.20 Pulmonary hypertension, unspecified; E11.9 Type 2 diabetes mellitus without complications; I10 Essential (primary) hypertension; E87.5 Hyperkalemia; Z79.84 Long term (current) use of oral hypoglycemic drugs; Z79.899 Other long term (current) drug therapy; Z79.82 Long term (current) use of aspirin
CPT/HCPCS: 36415; 36600; 71045; 71046; 80048; 80053; 81001; 82330; 82435; 82803; 82947; 82948; 83735; 84100; 84132; 84295; 85008; 85018; 85025; 85347; 85384; 85610; 85730; 86885; 86900; 86901; 86920; 87081; 87811; 93005; 93312; 93325; 94002; 94640; 94760; 97116; 97161; 97530; A4333; A4615; A4618; A6213; A6258; A6449; A7000; C1751; G0378; J0131; J0171; J0690; J1644; J1815; J1940; J2060; J2150; J2250; J2270; J2370; J2440; J2720; J2930; J3370; J3475; J3480; J3490; J7030; J7040; J7050; J7060; J7120; P9045; P9047